=== PATIENT | male | born 1970 | race Two or more races ===

== ENCOUNTER 2025-03-04 20:13 | Inpatient (IN) | payer MEDICAID ==
[2025-03-04] VITALS (7 sets, daily range): BP systolic 166–171; BP diastolic 107–115; PULSE 131–144; RESP 26–40; O2SAT 92–95
[~2025-03-04] VITALS: Ht 167.6 cm; Wt 83.9 kg
[2025-03-04 20:43] LABS: BASOPHILS % 1.3 % (0.0-2.0); EOSINOPHILS % 0.8 % (0.0-5.0); HEMATOCRIT. 49.1 % (42.0-52.0); HEMOGLOBIN. 15.6 g/dL (14.0-18.0); LYMPHOCYTES % 38.8 % (20.0-50.0); MEAN PLATELET VOLUME 8.9 fl (7.4-10.4); MONOCYTES % 5.8 % (2.0-8.0); NEUTROPHILS % 53.3 % (40.0-76.0); PLATELET 505 x1000/uL (130-400); RED BLOOD CELL COUNT 5.32 mill/uL (4.7-6.1); RED CELL DISTRIBUTION WIDTH 13.5 % (11.6-14.6)
[2025-03-04 20:56] LABS: CREATININE 1.3 mg/dL (0.6-1.3); UREA NITROGEN BLOOD 12 mg/dL (9-23)
[2025-03-04 20:57] LABS: ETHANOL BLOOD < 10 mg/dL (<10); INR 0.9; PROTEIN TOTAL 8.5 g/dL (6.0-8.3)
[2025-03-04] MEDS: PROPOFOL 10MG/ML 100ML 100 ML IV SCH (20:57)
[2025-03-04 20:58] LABS: ASPARTATE AMINOTRANSFERASE 30 IU/L (<34); BILIRUBIN DIRECT < 0.1 mg/dL (<=3.0)
[2025-03-04] MEDS: FUROSEMIDE 40MG/4ML VIAL IVP ONE (20:58)
[2025-03-04 20:59] LABS: BILIRUBIN TOTAL 0.3 mg/dL (0.1-1.0)
[2025-03-04] MEDS: NITROGLYCERIN OINT 1GM/INCH UDPKT TD ONE (20:59)
[2025-03-04 21:09] LABS: TROPONIN I HIGH SENSITIVITY 360 ng/L (3.0-53)
[2025-03-04] MEDS ORDERED: FENTANYL 2500MCG/250ML PMX 250 ML IV ONE (21:15)
[2025-03-04 21:21] LABS: BG BASE EXCESS -14.9 mmol/L (-2.0-3.0); BG CARBOXYHEMOGLOBIN 2.4 % (0.5-1.5); BG DEOXYHEMOGLOBIN 6.1 % (0.0-5.0); BG FRACTION INSPIRED OXYGEN 100; BG HCO3 ACT 17.7 mmol/L (21.0-28.0); BG METHEMOGLOBIN 0.3 % (0.5-1.5); BG OXYGEN SATURATION 93.7 % (94.0-98.0); BG OXYHEMOGLOBIN 91.2 % (94.0-98.0); BG PCO2 71.8 mmHg (35.0-48.0); BG PEEP (cmH2O) 5.0 cmH2O; BG PH 7.009 (7.350-7.450); BG PO2 96.4 mmHg (83.0-108.0); BG SAMPLE SITE LEFT RADIAL; BG TIDAL VOLUME(mL) 450.0 mL; BG TOTAL HEMOGLOBIN 16.4 g/dL (13.5-17.5); BG VENT MODE VENT - AC; BG VENT RATE 26.0 set
[2025-03-04] MEDS: FENTANYL 2500MCG/250ML PMX 250 ML IV PRN (21:27)
[2025-03-04] MEDS: LEVOFLOXACIN 750MG PREMIX 150 ML IV STA (22:49)
[2025-03-04] MEDS ORDERED: ASPIRIN 325MG EC TABLET PO NR (23:00)
[2025-03-04] MEDS ORDERED: DEXTROSE 50% WATER 50ML SYRINGE IV PRN (23:00)
[2025-03-04] MEDS ORDERED: IPRATROPIUM/ALBUTEROL 0.5-3(2.5)MG/3ML NEB HHN PRN (23:00)
[2025-03-04] MEDS ORDERED: IPRATROPIUM/ALBUTEROL 0.5-3(2.5)MG/3ML NEB NEB SCH (23:00)
[2025-03-04] MEDS ORDERED: AMIODARONE 150MG/100ML PREMIX IV NR (23:30)
[2025-03-04] MEDS ORDERED: HEPARIN BOLUS PRN aPTT 30-44 IV (23:30)
[2025-03-04] MEDS ORDERED: HEPARIN BOLUS PRN aPTT <30 IV ×2 (23:30→23:46)
[2025-03-04] MEDS ORDERED: HEPARIN 60 UNITS/KG BOLUS IV SCH (23:30)
[2025-03-04] MEDS ORDERED: NITROGLYCERIN 50MG PREMIX 250ML IV PRN (23:30)
[2025-03-04] MEDS ORDERED: AMIODARONE HCL 900 MG in DEXT 5% WATER 500 ML IV SCH (23:30)
[2025-03-05] VITALS (92 sets, daily range): BP systolic 67–171; BP diastolic 57–113; PULSE 76–141; RESP 18–39; TEMP 36.3–37.9; O2SAT 93–100
[2025-03-05] MEDS: MAGNESIUM 2 G PREMIX 50 ML IV NR (00:04)
[2025-03-05] MEDS: PANTOPRAZOLE SODIUM 40 MG/VIAL IV SCH (00:05)
[2025-03-05] MEDS: FUROSEMIDE 40MG/4ML VIAL IVP NR ×2 (00:05→02:01)
[2025-03-05] MEDS: HEPARIN 60 UNITS/KG BOLUS IV NR (00:05)
[2025-03-05] MEDS: BLOOD SUGAR DIAGNOSTIC STRIP TEST SCH ×2 (00:05→12:00)
[2025-03-05] MEDS: CLOPIDOGREL 75MG TABLET PO NR (00:05)
[2025-03-05] MEDS: ATORVASTATIN CALCIUM 40MG TABLET PO SCH (00:07)
[2025-03-05] MEDS: INSULIN LISPRO 100 UNITS/ML SUBCUT SCH ×2 (00:11→13:11)
[2025-03-05 00:31] LABS: BG BASE EXCESS -8.3 mmol/L (-2.0-3.0); BG CARBOXYHEMOGLOBIN 0.9 % (0.5-1.5); BG DEOXYHEMOGLOBIN 8.2 % (0.0-5.0); BG FRACTION INSPIRED OXYGEN 100; BG HCO3 ACT 21.4 mmol/L (21.0-28.0); BG METHEMOGLOBIN 0.1 % (0.5-1.5); BG OXYGEN SATURATION 91.7 % (94.0-98.0); BG OXYHEMOGLOBIN 90.8 % (94.0-98.0); BG PCO2 60.9 mmHg (35.0-48.0); BG PH 7.164 (7.350-7.450); BG PIP 20.0 cmH2O; BG PO2 73.4 mmHg (83.0-108.0); BG SAMPLE SITE LEFT BRACHIAL; BG TOTAL HEMOGLOBIN 16.5 g/dL (13.5-17.5); BG VENT MODE VENT - P/C; BG VENT RATE 20.0 set
[2025-03-05] MEDS: NOREPINEPHRINE 8MG/250ML PMX 250 ML IV PRN (00:42)
[2025-03-05] MEDS: HEPARIN 25,000 UNITS PREMIX 250 ML IV SCH ×2 (00:46→18:38)
[2025-03-05] MEDS: ASPIRIN 325MG TABLET PO NR (00:54)
[2025-03-05] MEDS: FUROSEMIDE 100MG/10ML VIAL IVP SCH (06:19)
[2025-03-05 06:30] LABS: BG BASE EXCESS -5.3 mmol/L (-2.0-3.0); BG CARBOXYHEMOGLOBIN 0.8 % (0.5-1.5); BG DEOXYHEMOGLOBIN 0.3 % (0.0-5.0); BG FRACTION INSPIRED OXYGEN 85; BG HCO3 ACT 19.8 mmol/L (21.0-28.0); BG METHEMOGLOBIN 0.2 % (0.5-1.5); BG OXYGEN SATURATION 99.7 % (94.0-98.0); BG OXYHEMOGLOBIN 98.7 % (94.0-98.0); BG PCO2 37.2 mmHg (35.0-48.0); BG PEEP (cmH2O) 5.0 cmH2O; BG PH 7.343 (7.350-7.450); BG PO2 327.6 mmHg (83.0-108.0); BG SAMPLE SITE LEFT BRACHIAL; BG TIDAL VOLUME(mL) 500.0 mL; BG TOTAL HEMOGLOBIN 15.0 g/dL (13.5-17.5); BG VENT MODE VENT - PRVC; BG VENT RATE 25.0 set
[2025-03-05 08:09] LABS: HEMATOCRIT. 44.6 % (42.0-52.0); HEMOGLOBIN. 14.7 g/dL (14.0-18.0); MEAN PLATELET VOLUME 8.5 fl (7.4-10.4); PLATELET 496 x1000/uL (130-400); RED BLOOD CELL COUNT 4.94 mill/uL (4.7-6.1); RED CELL DISTRIBUTION WIDTH 13.0 % (11.6-14.6)
[2025-03-05 08:19] LABS: CREATININE 1.6 mg/dL (0.6-1.3); TRIGLYCERIDE 217.0 mg/dL (0-150); UREA NITROGEN BLOOD 24.0 mg/dL (9-23)
[2025-03-05 08:20] LABS: LDL CHOLESTEROL 147.0 mg/dL (5-100)
[2025-03-05] MEDS ORDERED: INSULIN LISPRO 100 UNITS/ML SUBCUT SCH (08:20)
[2025-03-05 08:21] LABS: T4 FREE 1.38 ng/dL (0.89-1.76)
[2025-03-05] MEDS ORDERED: MORPHINE SULFATE 2 MG/ML INJ (NOT FOR IM USE) IV PRN (08:30)
[2025-03-05 08:37] LABS: TROPONIN I HIGH SENSITIVITY 4851 ng/L (3.0-53)
[2025-03-05] MEDS ORDERED: FENTANYL 2500MCG/250ML PMX 250 ML IV PRN (09:00)
[2025-03-05] MEDS ORDERED: PHENYLEPHRINE 50MG/250ML PMX 250 ML IV PRN (09:00)
[2025-03-05] MEDS ORDERED: NOREPINEPHRINE 8MG/250ML PMX 250 ML IV PRN (09:00)
[2025-03-05] MEDS: ASPIRIN 81MG EC TABLET PO SCH (09:36)
[2025-03-05] MEDS: CLOPIDOGREL 75MG TABLET PO SCH (09:36)
[2025-03-05] MEDS: HEPARIN BOLUS PRN aPTT 30-44 IV (09:36)
[2025-03-05] MEDS: DEXT 5%/0.9% NACL 1,000 ML IV SCH (09:41)
[2025-03-05] MEDS ORDERED: VASOPRESSIN 20 UNIT in SODIUM CHLORIDE 0.9% 99 ML IV PRN (10:00)
[2025-03-05] MEDS: PROPOFOL 10MG/ML 100ML 100 ML IV PRN (10:42)
[2025-03-05 13:33] LABS: CLARITY URINE CLEAR (CLEAR); COLOR URINE YELLOW (YELLOW); GLUCOSE URINE NEGATIVE (NEGATIVE); KETONES URINE NEGATIVE (NEGATIVE); LEUKOCYTE ESTERASE URINE NEGATIVE (NEGATIVE); NITRITE URINE NEGATIVE (NEGATIVE); OCCULT BLOOD URINE TRACE (NEGATIVE); PH URINE 5.0 (4.5-8.0); PROTEIN URINE NEGATIVE (NEGATIVE); SPECIFIC GRAVITY URINE 1.010 (1.005-1.030); UROBILINOGEN URINE 0.2 E.U./dL (0.2-1.0)
[2025-03-05 13:46] LABS: *AMPHETAMINES SCREEN URINE NEGATIVE (NEGATIVE); *BARBITURATES SCREEN URINE NEGATIVE (NEGATIVE); *BENZODIAZEPINES SCREEN URINE NEGATIVE (NEGATIVE); *COCAINE SCREEN URINE NEGATIVE (NEGATIVE); CANNABINOID URINE SCREEN NEGATIVE (NEGATIVE); ECSTASY MDMA SCREEN URINE NEGATIVE (NEGATIVE); METHADONE URINE SCREEN NEGATIVE (NEGATIVE); OPIATES URINE SCREEN PRESUMPTIVE POSITIVE (NEGATIVE); PHENCYCLIDINE URINE SCREEN NEGATIVE (NEGATIVE)
[2025-03-05 13:53] LABS: WBC URINE 0-2 /hpf (0-2)
[2025-03-05 13:54] LABS: BACTERIA URINE NONE SEEN; HYALINE CASTS URINE 0-5 /lpf; SQUAMOUS EPITHELIAL CELL URINE RARE /lpf (RARE/1+); YEAST URINE NONE SEEN
[2025-03-05] MEDS ORDERED: EPINEPHRINE 0.1MG/ML (1:10,000) 10ML SYR ONE (14:48)
[2025-03-05] MEDS ORDERED: HEPARIN 1000 UNITS/ML 10ML ONE ×2 (14:48→15:57)
[2025-03-05] MEDS ORDERED: IODIXANOL 320MG/ML 100 ML BOTTLE IV ONE (14:49)
[2025-03-05] MEDS ORDERED: ATROPINE SULFATE 1MG/10ML SYR ONE (14:49)
[2025-03-05] MEDS ORDERED: LIDOCAINE HCL 1% 20ML VIAL ONE (14:49)
[2025-03-05] MEDS ORDERED: MIDAZOLAM HCL 2 MG/2 ML VIAL ONE ×2 (15:31→15:48)
[2025-03-05] MEDS ORDERED: DEXTROSE 5% IV SCH (16:45)
[2025-03-05] MEDS ORDERED: WATER IV SCH (16:45)
[2025-03-05] MEDS ORDERED: SODIUM BICARBONATE IV SCH (16:45)
[2025-03-05] MEDS ORDERED: HEPARIN 25,000 UNITS PREMIX 250 ML IV SCH (16:45)
[2025-03-05] MEDS: FUROSEMIDE 40MG/4ML VIAL IVP SCH (18:36)
[2025-03-05] MEDS: IMPELLA PURGE SOLUTION MC SCH (18:42)
[2025-03-05] MEDS: LEVOFLOXACIN 750MG PREMIX 150 ML IV SCH (20:50)
[2025-03-06] VITALS (110 sets, daily range): BP systolic 102–132; BP diastolic 79–99; PULSE 94–120; RESP 22–28; TEMP 36.6–38.1; O2SAT 96–100
[2025-03-06 00:49] LABS: TROPONIN I HIGH SENSITIVITY 2920 ng/L (3.0-53); TROPONIN I HIGH SENSITIVITY 2922 ng/L (3.0-53)
[2025-03-06 00:54] LABS: PROTEIN TOTAL 6.2 g/dL (6.0-8.3)
[2025-03-06 00:55] LABS: ASPARTATE AMINOTRANSFERASE 67 IU/L (<34); BILIRUBIN DIRECT 0.3 mg/dL (<=3.0); BILIRUBIN TOTAL 1.3 mg/dL (0.1-1.0); PHOSPHORUS 2.3 mg/dL (2.5-4.9)
[2025-03-06 06:53] LABS: BASOPHILS % 0.3 % (0.0-2.0); EOSINOPHILS % 0.1 % (0.0-5.0); HEMATOCRIT. 38.1 % (42.0-52.0); HEMOGLOBIN. 13.0 g/dL (14.0-18.0); LYMPHOCYTES % 7.2 % (20.0-50.0); MEAN PLATELET VOLUME 8.7 fl (7.4-10.4); MONOCYTES % 6.9 % (2.0-8.0); NEUTROPHILS % 85.5 % (40.0-76.0); PLATELET 355 x1000/uL (130-400); RED BLOOD CELL COUNT 4.34 mill/uL (4.7-6.1); RED CELL DISTRIBUTION WIDTH 13.1 % (11.6-14.6)
[2025-03-06 07:12] LABS: TRIGLYCERIDE 305 mg/dL (0-150)
[2025-03-06 07:13] LABS: UREA NITROGEN BLOOD 17 mg/dL (9-23)
[2025-03-06 07:14] LABS: CREATININE 1.0 mg/dL (0.6-1.3)
[2025-03-06 07:15] LABS: PHOSPHORUS 2.8 mg/dL (2.5-4.9)
[2025-03-06] MEDS ORDERED: POTASSIUM CHLORIDE 40 MEQ in DEXT 5% WATER 230 ML IV ONE (07:45)
[2025-03-06] MEDS ORDERED: KCL 20MEQ/100ML PREMIX 100 ML IV SCH (08:00)
[2025-03-06 08:29] LABS: BG BASE EXCESS -0.7 mmol/L (-2.0-3.0); BG CARBOXYHEMOGLOBIN 1.7 % (0.5-1.5); BG DEOXYHEMOGLOBIN 3.3 % (0.0-5.0); BG FRACTION INSPIRED OXYGEN 30; BG HCO3 ACT 20.4 mmol/L (21.0-28.0); BG METHEMOGLOBIN 0.2 % (0.5-1.5); BG OXYGEN SATURATION 96.6 % (94.0-98.0); BG OXYHEMOGLOBIN 94.8 % (94.0-98.0); BG PCO2 25.1 mmHg (35.0-48.0); BG PEEP (cmH2O) 5.0 cmH2O; BG PH 7.527 (7.350-7.450); BG PO2 77.8 mmHg (83.0-108.0); BG SAMPLE SITE LEFT RADIAL; BG TIDAL VOLUME(mL) 500.0 mL; BG TOTAL HEMOGLOBIN 14.4 g/dL (13.5-17.5); BG TOTAL RESPIRATORY RATE 27 b/min; BG VENT MODE VENT - AC; BG VENT RATE 25.0 set
[2025-03-06 08:32] LABS: BG DEOXYHEMOGLOBIN 35.8 % (0.0-5.0)
[2025-03-06] MEDS: KCL 20MEQ/100ML PREMIX 100 ML IV SCH ×2 (08:39→23:30)
[2025-03-06] MEDS: IPRATROPIUM/ALBUTEROL 0.5-3(2.5)MG/3ML NEB NEB SCH (09:18)
[2025-03-06] MEDS ORDERED: PROPOFOL 10MG/ML 100ML 100 ML IV PRN (10:15)
[2025-03-06] MEDS: MIDAZOLAM 100MG/100ML PMX 100 ML IV PRN (10:34)
[2025-03-06] MEDS: ACETAMINOPHEN 325MG TABLET PO PRN (12:36)
[2025-03-06 15:59] LABS: LYMPHOCYTES % MANUAL 7.0 % (20.0-50.0); MONOCYTES % MANUAL 13.0 % (2.0-8.0); NEUTROPHILS % MANUAL 80.0 % (45.0-75.0)
[2025-03-06 16:00] LABS: PLATELET ESTIMATE INCREASED
[2025-03-06] MEDS: LEVOFLOXACIN 750MG PREMIX 150 ML IV SCH (21:22)
[2025-03-06 22:26] LABS: PROTEIN TOTAL 6.2 g/dL (6.0-8.3)
[2025-03-06 22:27] LABS: ASPARTATE AMINOTRANSFERASE 40 IU/L (<34); BILIRUBIN DIRECT 0.2 mg/dL (<=3.0); BILIRUBIN TOTAL 0.9 mg/dL (0.1-1.0)
[2025-03-07] VITALS (108 sets, daily range): BP systolic 97–143; BP diastolic 75–97; PULSE 101–158; RESP 17–27; TEMP 36.3–38; O2SAT 95–100
[2025-03-07 05:24] LABS: PLATELET 300 x1000/uL (130-400); RED BLOOD CELL COUNT 4.07 mill/uL (4.7-6.1); RED CELL DISTRIBUTION WIDTH 12.9 % (11.6-14.6)
[2025-03-07 05:39] LABS: CREATININE 1.2 mg/dL (0.6-1.3); UREA NITROGEN BLOOD 13 mg/dL (9-23)
[2025-03-07 05:41] LABS: PHOSPHORUS 2.3 mg/dL (2.5-4.9)
[2025-03-07 06:07] LABS: INR 1.1
[2025-03-07] MEDS: FUROSEMIDE 40MG/4ML VIAL IVP SCH (08:58)
[2025-03-07 10:17] LABS: BG BASE EXCESS 0.5 mmol/L (-2.0-3.0); BG CARBOXYHEMOGLOBIN 0.5 % (0.5-1.5); BG DEOXYHEMOGLOBIN 2.1 % (0.0-5.0); BG FRACTION INSPIRED OXYGEN 30; BG HCO3 ACT 22.2 mmol/L (21.0-28.0); BG METHEMOGLOBIN 0.3 % (0.5-1.5); BG OXYGEN SATURATION 97.9 % (94.0-98.0); BG OXYHEMOGLOBIN 97.1 % (94.0-98.0); BG PCO2 28.4 mmHg (35.0-48.0); BG PEEP (cmH2O) 5.0 cmH2O; BG PH 7.511 (7.350-7.450); BG PO2 97.1 mmHg (83.0-108.0); BG SAMPLE SITE LEFT RADIAL; BG TIDAL VOLUME(mL) 500.0 mL; BG TOTAL HEMOGLOBIN 14.8 g/dL (13.5-17.5); BG TOTAL RESPIRATORY RATE 25 b/min; BG VENT MODE VENT - AC; BG VENT RATE 25.0 set
[2025-03-07] MEDS ORDERED: NALOXONE HCL 0.4MG/ML VIAL IV PRN (16:45)
[2025-03-07] MEDS: INSULIN GLARGINE 100 UNITS/ML SUBCUT SCH (22:54)
[2025-03-08] VITALS (104 sets, daily range): BP systolic 97–154; BP diastolic 64–97; PULSE 86–119; RESP 17–37; TEMP 36.7–37.4; O2SAT 96–100
[2025-03-08 06:08] LABS: BASOPHILS % 0.2 % (0.0-2.0); EOSINOPHILS % 0.3 % (0.0-5.0); HEMATOCRIT. 35.5 % (42.0-52.0); HEMOGLOBIN. 12.0 g/dL (14.0-18.0); LYMPHOCYTES % 11.8 % (20.0-50.0); MEAN PLATELET VOLUME 8.3 fl (7.4-10.4); MONOCYTES % 9.4 % (2.0-8.0); NEUTROPHILS % 78.3 % (40.0-76.0); PLATELET 260 x1000/uL (130-400); RED BLOOD CELL COUNT 4.03 mill/uL (4.7-6.1); RED CELL DISTRIBUTION WIDTH 13.0 % (11.6-14.6)
[2025-03-08 06:26] LABS: PHOSPHORUS 1.9 mg/dL (2.5-4.9)
[2025-03-08 07:40] LABS: CREATININE 1.0 mg/dL (0.6-1.3); UREA NITROGEN BLOOD 14 mg/dL (9-23)
[2025-03-08] MEDS: INSULIN GLARGINE 100 UNITS/ML SUBCUT SCH (09:33)
[2025-03-08 09:52] LABS: BG BASE EXCESS -0.8 mmol/L (-2.0-3.0); BG CARBOXYHEMOGLOBIN 0.6 % (0.5-1.5); BG DEOXYHEMOGLOBIN 2.2 % (0.0-5.0); BG FRACTION INSPIRED OXYGEN 30; BG HCO3 ACT 22.5 mmol/L (21.0-28.0); BG METHEMOGLOBIN 0.3 % (0.5-1.5); BG OXYGEN SATURATION 97.8 % (94.0-98.0); BG OXYHEMOGLOBIN 96.9 % (94.0-98.0); BG PCO2 32.9 mmHg (35.0-48.0); BG PEEP (cmH2O) 5.0 cmH2O; BG PH 7.453 (7.350-7.450); BG PO2 101.2 mmHg (83.0-108.0); BG SAMPLE SITE RIGHT BRACHIAL; BG TOTAL HEMOGLOBIN 12.8 g/dL (13.5-17.5); BG VENT MODE VENT - CPAP
[2025-03-08] MEDS: ONDANSETRON HCL 4MG/2ML INJ IV PRN (13:54)
[2025-03-08] MEDS: ACETAMINOPHEN 325MG TABLET PO PRN (21:03)
[2025-03-08] MEDS: POTASSIUM PHOSPHATE 30 MMOL in SODIUM CHLORIDE 0.9% 490 ML IV NR (23:36)
[2025-03-08] MEDS: CALCIUM GLUCONATE 100MG/ML 10ML VIAL IV NR (23:36)
[2025-03-09] VITALS (101 sets, daily range): BP systolic 99–123; BP diastolic 58–77; PULSE 72–97; RESP 16–29; TEMP 36.6–37; O2SAT 96–100
[2025-03-09 06:28] LABS: BASOPHILS % 0.5 % (0.0-2.0); EOSINOPHILS % 0.9 % (0.0-5.0); HEMATOCRIT. 32.1 % (42.0-52.0); HEMOGLOBIN. 10.8 g/dL (14.0-18.0); LYMPHOCYTES % 17.1 % (20.0-50.0); MEAN PLATELET VOLUME 8.8 fl (7.4-10.4); MONOCYTES % 10.9 % (2.0-8.0); NEUTROPHILS % 70.6 % (40.0-76.0); PLATELET 237 x1000/uL (130-400); RED BLOOD CELL COUNT 3.66 mill/uL (4.7-6.1); RED CELL DISTRIBUTION WIDTH 13.0 % (11.6-14.6)
[2025-03-09 06:42] LABS: CREATININE 1.0 mg/dL (0.6-1.3); UREA NITROGEN BLOOD 13 mg/dL (9-23)
[2025-03-09 06:44] LABS: PHOSPHORUS 4.6 mg/dL (2.5-4.9)
[2025-03-09] MEDS ORDERED: LIDOCAINE HCL 1% 10 MG/ML 10ML VIAL ONE ×2 (08:08→13:58)
[2025-03-09] MEDS: DOCUSATE SODIUM 100MG CAPSULE PO NR (08:34)
[2025-03-10] VITALS (64 sets, daily range): BP systolic 83–125; BP diastolic 53–110; PULSE 71–95; RESP 16–31; TEMP 36.9–38.2; O2SAT 91–100
[2025-03-10 05:51] LABS: BASOPHILS % 0.3 % (0.0-2.0); EOSINOPHILS % 0.9 % (0.0-5.0); HEMATOCRIT. 31.5 % (42.0-52.0); HEMOGLOBIN. 10.9 g/dL (14.0-18.0); LYMPHOCYTES % 14.6 % (20.0-50.0); MEAN PLATELET VOLUME 8.4 fl (7.4-10.4); MONOCYTES % 9.6 % (2.0-8.0); NEUTROPHILS % 74.6 % (40.0-76.0); PLATELET 204 x1000/uL (130-400); RED BLOOD CELL COUNT 3.63 mill/uL (4.7-6.1); RED CELL DISTRIBUTION WIDTH 12.6 % (11.6-14.6)
[2025-03-10 06:37] LABS: CREATININE 1.0 mg/dL (0.6-1.3); UREA NITROGEN BLOOD 11 mg/dL (9-23)
[2025-03-10 06:39] LABS: PHOSPHORUS 3.7 mg/dL (2.5-4.9)
[2025-03-10] MEDS: DOCUSATE SODIUM 100MG CAPSULE PO SCH (08:23)
[2025-03-10] MEDS: LACTULOSE 20G/30ML UDC PO NR (18:49)
[2025-03-10 21:48] LABS: BASOPHILS % 0.5 % (0.0-2.0); EOSINOPHILS % 1.1 % (0.0-5.0); HEMATOCRIT. 32.9 % (42.0-52.0); HEMOGLOBIN. 10.9 g/dL (14.0-18.0); LYMPHOCYTES % 16.9 % (20.0-50.0); MEAN PLATELET VOLUME 8.4 fl (7.4-10.4); MONOCYTES % 9.4 % (2.0-8.0); NEUTROPHILS % 72.1 % (40.0-76.0); PLATELET 206 x1000/uL (130-400); RED BLOOD CELL COUNT 3.76 mill/uL (4.7-6.1); RED CELL DISTRIBUTION WIDTH 12.7 % (11.6-14.6)
[2025-03-10 22:00] LABS: PHOSPHORUS 3.0 mg/dL (2.5-4.9)
[2025-03-10 22:48] LABS: CLARITY URINE CLEAR (CLEAR); COLOR URINE YELLOW (YELLOW); GLUCOSE URINE NEGATIVE (NEGATIVE); KETONES URINE TRACE (NEGATIVE); LEUKOCYTE ESTERASE URINE TRACE (NEGATIVE); NITRITE URINE NEGATIVE (NEGATIVE); OCCULT BLOOD URINE 3+ (NEGATIVE); PH URINE 6.5 (4.5-8.0); PROTEIN URINE 1+ (NEGATIVE); SPECIFIC GRAVITY URINE 1.023 (1.005-1.030); UROBILINOGEN URINE 2.0 E.U./dL (0.2-1.0)
[2025-03-10 23:01] LABS: CREATININE 1.0 mg/dL (0.6-1.3); UREA NITROGEN BLOOD 11 mg/dL (9-23)
[2025-03-10 23:43] LABS: BACTERIA URINE 1+; RBC URINE 25-50 /hpf (0-2); SQUAMOUS EPITHELIAL CELL URINE FEW /lpf (RARE/1+); WBC URINE 0-2 /hpf (0-2)
[2025-03-11] VITALS (50 sets, daily range): BP systolic 108–130; BP diastolic 68–83; PULSE 67–93; RESP 15–32; TEMP 36.7–37.4; O2SAT 94–100
[2025-03-11] MEDS ORDERED: DEXTROSE 50% WATER 50ML SYRINGE IV PRN (06:30)
[2025-03-11 06:43] LABS: BASOPHILS % 0.4 % (0.0-2.0); EOSINOPHILS % 1.2 % (0.0-5.0); HEMATOCRIT. 33.3 % (42.0-52.0); HEMOGLOBIN. 11.1 g/dL (14.0-18.0); LYMPHOCYTES % 14.9 % (20.0-50.0); MEAN PLATELET VOLUME 9.4 fl (7.4-10.4); MONOCYTES % 8.2 % (2.0-8.0); NEUTROPHILS % 75.3 % (40.0-76.0); PLATELET 205 x1000/uL (130-400); RED BLOOD CELL COUNT 3.82 mill/uL (4.7-6.1); RED CELL DISTRIBUTION WIDTH 12.9 % (11.6-14.6)
[2025-03-11] MEDS: INSULIN LISPRO 100 UNITS/ML SUBCUT SCH (06:50)
[2025-03-11 07:11] LABS: CREATININE 1.0 mg/dL (0.6-1.3)
[2025-03-11 07:12] LABS: UREA NITROGEN BLOOD 9 mg/dL (9-23)
[2025-03-11 07:15] LABS: PHOSPHORUS 3.6 mg/dL (2.5-4.9)
[2025-03-11] MEDS ORDERED: INSULIN LISPRO 100 UNITS/ML SUBCUT SCH (12:00)
[2025-03-11] MEDS ORDERED: INSULIN GLARGINE 100 UNITS/ML SUBCUT SCH (12:00)
[2025-03-12] VITALS (62 sets, daily range): BP systolic 102–132; BP diastolic 58–110; PULSE 73–98; RESP 14–31; TEMP 36.7–36.9; O2SAT 93–100
[2025-03-12] MEDS: IPRATROPIUM/ALBUTEROL 0.5-3(2.5)MG/3ML NEB HHN PRN (00:51)
[2025-03-12 05:32] LABS: BASOPHILS % 0.4 % (0.0-2.0); EOSINOPHILS % 0.9 % (0.0-5.0); HEMATOCRIT. 33.4 % (42.0-52.0); HEMOGLOBIN. 11.2 g/dL (14.0-18.0); LYMPHOCYTES % 16.0 % (20.0-50.0); MEAN PLATELET VOLUME 8.8 fl (7.4-10.4); MONOCYTES % 8.9 % (2.0-8.0); NEUTROPHILS % 73.8 % (40.0-76.0); PLATELET 204 x1000/uL (130-400); RED BLOOD CELL COUNT 3.85 mill/uL (4.7-6.1); RED CELL DISTRIBUTION WIDTH 12.6 % (11.6-14.6)
[2025-03-12 05:47] LABS: CREATININE 0.9 mg/dL (0.6-1.3); UREA NITROGEN BLOOD 10 mg/dL (9-23)
[2025-03-12 05:49] LABS: PHOSPHORUS 3.5 mg/dL (2.5-4.9)
[2025-03-12] MEDS ORDERED: IODIXANOL 320 MG/ML 150ML BOTTLE IV ONE (09:25)
[2025-03-12] MEDS ORDERED: FENTANYL CITRATE/PF 50MCG/ML 2ML VIAL ONE (09:26)
[2025-03-12] MEDS ORDERED: MIDAZOLAM HCL 2 MG/2 ML VIAL ONE (09:26)
[2025-03-12] MEDS ORDERED: HEPARIN 1000 UNITS/ML 10ML ONE ×2 (09:27→09:55)
[2025-03-12] MEDS ORDERED: LIDOCAINE HCL 1% 10 MG/ML 10ML VIAL ONE (09:27)
[2025-03-12] MEDS ORDERED: IODIXANOL 320MG/ML 100 ML BOTTLE IV ONE (11:04)
[2025-03-12] MEDS ORDERED: CLOPIDOGREL 75MG TABLET ONE (11:33)
[2025-03-12] MEDS: SODIUM CHL 0.45% + KCL 20MEQ/L 1,000 ML IV ONE (13:42)
[2025-03-13] VITALS (51 sets, daily range): BP systolic 99–135; BP diastolic 55–101; PULSE 78–93; RESP 13–28; TEMP 36.8–37.4; O2SAT 95–99
[2025-03-13 05:45] LABS: BASOPHILS % 0.6 % (0.0-2.0); EOSINOPHILS % 0.9 % (0.0-5.0); HEMATOCRIT. 32.4 % (42.0-52.0); HEMOGLOBIN. 10.9 g/dL (14.0-18.0); LYMPHOCYTES % 10.8 % (20.0-50.0); MEAN PLATELET VOLUME 9.2 fl (7.4-10.4); MONOCYTES % 8.8 % (2.0-8.0); NEUTROPHILS % 78.9 % (40.0-76.0); PLATELET 185 x1000/uL (130-400); RED BLOOD CELL COUNT 3.74 mill/uL (4.7-6.1); RED CELL DISTRIBUTION WIDTH 12.5 % (11.6-14.6)
[2025-03-13 06:02] LABS: CREATININE 0.8 mg/dL (0.6-1.3); UREA NITROGEN BLOOD 8 mg/dL (9-23)
[2025-03-13 06:04] LABS: PHOSPHORUS 3.4 mg/dL (2.5-4.9)
[2025-03-13] MEDS: MORPHINE SULFATE 2 MG/ML INJ (NOT FOR IM USE) IV SCH (13:55)
[2025-03-13] MEDS ORDERED: MORPHINE SULFATE 2 MG/ML INJ (NOT FOR IM USE) IV PRN (14:00)
[2025-03-13] MEDS: MORPHINE SULFATE 2 MG/ML INJ (NOT FOR IM USE) IV PRN (14:13)
[2025-03-13] MEDS: CARVEDILOL 3.125 MG TABLET PO SCH (21:35)
[2025-03-14] VITALS (87 sets, daily range): BP systolic 86–131; BP diastolic 47–83; PULSE 72–98; RESP 15–31; TEMP 36.8–37.3; O2SAT 95–99
[2025-03-14 05:50] LABS: BASOPHILS % 0.4 % (0.0-2.0); EOSINOPHILS % 1.5 % (0.0-5.0); HEMATOCRIT. 32.6 % (42.0-52.0); HEMOGLOBIN. 11.1 g/dL (14.0-18.0); LYMPHOCYTES % 14.6 % (20.0-50.0); MEAN PLATELET VOLUME 9.2 fl (7.4-10.4); MONOCYTES % 9.7 % (2.0-8.0); NEUTROPHILS % 73.8 % (40.0-76.0); PLATELET 220 x1000/uL (130-400); RED BLOOD CELL COUNT 3.79 mill/uL (4.7-6.1); RED CELL DISTRIBUTION WIDTH 12.6 % (11.6-14.6)
[2025-03-14 06:01] LABS: CREATININE 0.7 mg/dL (0.6-1.3); UREA NITROGEN BLOOD 7 mg/dL (9-23)
[2025-03-14] MEDS: ENOXAPARIN 40MG/0.4ML SYR SUBCUT SCH (20:34)
[2025-03-14] MEDS: SACUBITRIL/VALSARTAN 24MG/26MG TABLET PO SCH (20:34)
[2025-03-15] VITALS (8 sets, daily range): BP systolic 98–110; BP diastolic 65–69; PULSE 73–90; RESP 14–27; TEMP 36.7–37.2; O2SAT 87–99
[2025-03-15 07:32] LABS: BASOPHILS % 0.5 % (0.0-2.0); EOSINOPHILS % 1.6 % (0.0-5.0); HEMATOCRIT. 32.4 % (42.0-52.0); HEMOGLOBIN. 11.1 g/dL (14.0-18.0); LYMPHOCYTES % 18.1 % (20.0-50.0); MEAN PLATELET VOLUME 9.0 fl (7.4-10.4); MONOCYTES % 8.9 % (2.0-8.0); NEUTROPHILS % 70.9 % (40.0-76.0); PLATELET 307 x1000/uL (130-400); RED BLOOD CELL COUNT 3.75 mill/uL (4.7-6.1); RED CELL DISTRIBUTION WIDTH 12.7 % (11.6-14.6)
[2025-03-15 07:52] LABS: CREATININE 0.7 mg/dL (0.6-1.3); UREA NITROGEN BLOOD 10 mg/dL (9-23)
[2025-03-15] MEDS ORDERED: DEXTROSE 50% WATER 50ML SYRINGE IV PRN (08:15)
[2025-03-15] MEDS: BLOOD SUGAR DIAGNOSTIC STRIP TEST SCH (08:30)
[2025-03-15] MEDS ORDERED: NALOXONE HCL 0.4MG/ML VIAL IV PRN (08:45)
[2025-03-15] MEDS: EMPAGLIFLOZIN 10MG TABLET PO SCH (09:49)
[2025-03-15] MEDS: INSULIN LISPRO 100 UNITS/ML SUBCUT SCH (09:53)
[2025-03-15] MEDS ORDERED: SACU1TAB7 MT (12:40)
[2025-03-15] MEDS ORDERED: ASPI-1497 MT (12:40)
[2025-03-15] MEDS ORDERED: ATOR-2 MT (12:40)
[2025-03-15] MEDS ORDERED: CARV3.1242 MT (12:40)
[2025-03-15] MEDS ORDERED: CLOP75TA33 MT (12:40)
[2025-03-15] MEDS ORDERED: EMPA10TA MT (12:40)
[2025-03-15] MEDS ORDERED: FAMOTIDINE 20MG/2ML VIAL IV SCH (21:00)
== END 2025-03-15 16:17 | disposition home or self-care (01) | DRG 178 ==
LOC: ER 20:13 → EDBEDREQ 21:31 → ENRESERV 22:29 → CVICU 23:33 → 3WST 03-15 01:01
PROVIDERS: ADMIT Internal Medicine; ATTEND Internal Medicine
PROC: 5A1945Z Respiratory Ventilation, 24-96 Consecutive Hours (ICD-10-PCS; 2025-03-04)
PROC: 0BH17EZ Insertion of Endotracheal Airway into Trachea, Via Natural or Artificial Opening (ICD-10-PCS; 2025-03-04)
PROC: 5A12012 Performance of Cardiac Output, Single, Manual (ICD-10-PCS; 2025-03-04)
PROC: 4A023N8 Measurement of Cardiac Sampling and Pressure, Bilateral, Percutaneous Approach (ICD-10-PCS; principal; 2025-03-05)
PROC: 02HA3RZ Insertion of Short-term External Heart Assist System into Heart, Percutaneous Approach (ICD-10-PCS; 2025-03-05)
PROC: 5A0221D Assistance with Cardiac Output using Impeller Pump, Continuous (ICD-10-PCS; 2025-03-05)
PROC: B2111ZZ Fluoroscopy of Multiple Coronary Arteries using Low Osmolar Contrast (ICD-10-PCS; 2025-03-05)
PROC: 02HP32Z Insertion of Monitoring Device into Pulmonary Trunk, Percutaneous Approach (ICD-10-PCS; 2025-03-05)
PROC: 02HV33Z Insertion of Infusion Device into Superior Vena Cava, Percutaneous Approach (ICD-10-PCS; 2025-03-09)
PROC: B548ZZA Ultrasonography of Superior Vena Cava, Guidance (ICD-10-PCS; 2025-03-09)
PROC: 027037Z Dilation of Coronary Artery, One Artery with Four or More Drug-eluting Intraluminal Devices, Percutaneous Approach (ICD-10-PCS; 2025-03-12)
PROC: 02F03ZZ Fragmentation in Coronary Artery, One Artery, Percutaneous Approach (ICD-10-PCS; 2025-03-12)
PROC: B241ZZ3 Ultrasonography of Multiple Coronary Arteries, Intravascular (ICD-10-PCS; 2025-03-12)
PROC: 4A023N7 Measurement of Cardiac Sampling and Pressure, Left Heart, Percutaneous Approach (ICD-10-PCS; 2025-03-12)
PROC: B2111ZZ Fluoroscopy of Multiple Coronary Arteries using Low Osmolar Contrast (ICD-10-PCS; 2025-03-12)
PROC: B2151ZZ Fluoroscopy of Left Heart using Low Osmolar Contrast (ICD-10-PCS; 2025-03-12)
PROC: 02PA3RZ Removal of Short-term External Heart Assist System from Heart, Percutaneous Approach (ICD-10-PCS; 2025-03-13)
DX: I21.4 Non-ST elevation (NSTEMI) myocardial infarction (principal); J96.02 Acute respiratory failure with hypercapnia; G93.41 Metabolic encephalopathy; J96.01 Acute respiratory failure with hypoxia; A41.9 Sepsis, unspecified organism; R57.0 Cardiogenic shock; I16.1 Hypertensive emergency; J18.9 Pneumonia, unspecified organism; Z79.02 Long term (current) use of antithrombotics/antiplatelets; N17.9 Acute kidney failure, unspecified; I11.0 Hypertensive heart disease with heart failure; E11.65 Type 2 diabetes mellitus with hyperglycemia; D64.9 Anemia, unspecified; E87.20 Acidosis, unspecified; I50.23 Acute on chronic systolic (congestive) heart failure; D75.838 Other thrombocytosis; E78.5 Hyperlipidemia, unspecified; I25.10 Atherosclerotic heart disease of native coronary artery without angina pectoris; I44.7 Left bundle-branch block, unspecified; Z72.0 Tobacco use; Z79.82 Long term (current) use of aspirin; I25.2 Old myocardial infarction
CPT/HCPCS: 31500; 31720; 33990; 36415; 36573; 36600; 71045; 76604; 80048; 80061; 80076; 80305; 80320; 81003; 82375; 82803; 82805; 82962; 83036; 83605; 83735; 83880; 84100; 84132; 84145; 84439; 84443; 84478; 84484; 85025; 85027; 85347; 85379; 86850; 86900; 87070; 92928; 92950; 92978; 93005; 93306; 93454; 93460; 93970; 93971; 94002; 94003; 94070; 94640; 98960; 99291; A4606; A4615; C1725; C1753; C1760; C1769; C1874; C1887; C1893; J0282; J0461; J0612; J1644; J1650; J1815; J1938; J1956; J2003; J2250; J2270; J2405; J2470; J2704; J3010; J3475; J3480; J3490; J7040; J7042; J7060; J7070; Q9967; C1761; G0480